=== PATIENT | male | born 1970 | race Hispanic/Latino ===

== ENCOUNTER 2019-03-08 20:13 | Emergency (ER) | payer SELFPAY | END 2019-03-08 22:42 | disposition home or self-care (01) | LOC: ERS 20:13 | DX: G56.01 Carpal tunnel syndrome, right upper limb (principal); F17.210 Nicotine dependence, cigarettes, uncomplicated | CPT/HCPCS: 99283 ==

== ENCOUNTER 2019-09-19 11:26 | Emergency (ER) | payer SELFPAY ==
[2019-09-19] MEDS ORDERED: Ketorolac Tromethamine 30 MG/ML VIAL ONE (12:50)
--- NOTE | 2019-09-19 13:44 | RAD ---
LEFT SHOULDER: 09/19/19 HISTORY: Left arm pain. No fracture or dislocation. There is spurring from the AC joint. Mild spurring from the humeral head. IMPRESSION: There are degenerative changes at the glenohumeral joint and AC joint. No acute abnormality. POS: AGW
--- NOTE | 2019-09-20 10:34 | EKG ---
Test Reason : Blood Pressure : / mmHG Vent. Rate : 068 BPM Atrial Rate : 068 BPM P-R Int : 156 ms QRS Dur : 094 ms QT Int : 380 ms P-R-T Axes : 061 032 030 degrees QTc Int : 404 ms Normal sinus rhythm Normal ECG Confirmed by EDENILSON SANDOVAL DO ([id number]), editor in chief newspaper REYNALDO SCHMIDT ([id number]) on 09/20/2019 10:34:33 AM Referred By: Confirmed By:EDENILSON SANDOVAL DO
== END 2019-09-19 14:06 | disposition home or self-care (01) ==
LOC: ERS 11:26
DX: M25.512 Pain in left shoulder (principal); F17.210 Nicotine dependence, cigarettes, uncomplicated
CPT/HCPCS: 93005; 96372; J1885

== ENCOUNTER 2020-07-04 11:55 | Emergency (ER) | payer SELFPAY | END 2020-07-04 14:43 | disposition home or self-care (01) | LOC: ERS 11:55 | DX: M06.9 Rheumatoid arthritis, unspecified (principal); F17.210 Nicotine dependence, cigarettes, uncomplicated | CPT/HCPCS: 99283 ==

== ENCOUNTER 2020-08-09 15:12 | Emergency (ER) | payer OTHER, SELFPAY ==
[2020-08-09] MEDS ORDERED: Ketorolac Tromethamine 30 MG/ML VIAL ONE (16:42)
[2020-08-09 16:55] LABS: #Eosinphils 0.1 thou/uL (0.0-0.7); #Neutrophils 6.6 thou/uL (1.40-6.50); %Basophils 0.4 % (0.0-1.0); %Eosinophils 0.6 % (0.0-10.0); %Lymphocytes 20.6 % (21.0-51.0); %Monocytes 10.6 % (0.0-10.0); %Neutrophils 67.8 % (42.0-75.0); Hemoglobin 14.1 g/dL (14.0-18.0); Mean Corpuscular Hemoglobin 33.3 pg (27.0-31.0); Mean Platelet Volume 7.7 fL (7.4-10.4); Platelet Count 270 thou/uL (130-400); RBC Distribution Width 11.7 % (11.5-14.5); Red Blood Cell (RBC) Count 4.22 mill/uL (4.70-6.10); White Blood Cell (WBC) Count 9.7 thou/uL (4.8-10.8)
[2020-08-09 17:44] LABS: ALT (SGPT) 13 U/L (8-55); AST (SGOT) 24 U/L (5-34); Albumin 4.1 g/dL (3.5-5.0); Alkaline Phosphatase 82 U/L (40-110); Anion Gap 15 mmol/L (10-20); BUN (Urea Nitrogen) 21 mg/dL (8.4-25.7); Bilirubin, Total 0.6 mg/dL (0.2-1.2); Calc. Creatinine Clearance 0 mL/min (70-130); Calcium 9.3 mg/dL (7.8-10.44); Carbon Dioxide 25 mmol/L (22-29); Chloride 105 mmol/L (98-107); Globulin 2.9 g/dL (2.4-3.5); Glucose 99 mg/dL (70-105); Potassium 3.8 mmol/L (3.5-5.1); Sodium 141 mmol/L (136-145)
== END 2020-08-09 18:58 | disposition home or self-care (01) ==
LOC: ERS 15:12
DX: S20.212A Contusion of left front wall of thorax, initial encounter (principal); M06.9 Rheumatoid arthritis, unspecified; F17.210 Nicotine dependence, cigarettes, uncomplicated; V43.92XA Unspecified car occupant injured in collision with other type car in traffic accident, initial encounter
CPT/HCPCS: 36415; 71045; 80053; 84484; 85025; 93005; 96374; J1885

== ENCOUNTER 2024-11-02 09:43 | Emergency (ER) | payer SELFPAY | END 2024-11-02 12:31 | disposition home or self-care (01) | LOC: ERS 09:43 | DX: M06.9 Rheumatoid arthritis, unspecified (principal); F17.210 Nicotine dependence, cigarettes, uncomplicated | CPT/HCPCS: 96372; 99282 ==